=== PATIENT | female | born 1955 ===

== ENCOUNTER → 2017-12-26 | Outpatient (REF) | LOC: ZZSLMC 12:00 | PROVIDERS: ATTEND Dentist General Practice | DX: L28.0 Lichen simplex chronicus (principal) | CPT/HCPCS: 88305 ==

== ENCOUNTER → 2018-12-11 | Outpatient (REF) | LOC: ZZSLMC 12:00 | PROVIDERS: ATTEND Surgery | DX: K29.50 Unspecified chronic gastritis without bleeding (principal) | CPT/HCPCS: 88305; 88342 ==